=== PATIENT | male | born 1990 | race Caucasian/White ===

== ENCOUNTER 2017-03-28 22:22 | Emergency (ER) | payer BC, OTHER ==
[2017-03-28 22:53] VITALS: BP 128/84
[2017-03-28] MEDS ORDERED: HYDROmorphone 1 MG/ML Syringe IM ONE (23:00)
[2017-03-28] MEDS ORDERED: HYDROmorphone 1 MG/ML Syringe ONE (23:09)
--- NOTE | 2017-03-28 23:38 | EDM.PDOC ---
ED HPI GENERAL MEDICAL PROBLEM - General Chief Complaint: Upper Extremity Injury/Pain Stated Complaint: RIGHT ARM INJURY Time Seen by Provider: 03/28/17 23:01 Source of Information: Reports: Patient History Limitations: Reports: No Limitations - History of Present Illness INITIAL COMMENTS - FREE TEXT/NARRATIVE: This young man is here on a 4 bales tripped and somehow his right upper or got pinned between a trailer and a tree. This happened just prior to arrival. He has a lot of pain to the upper or complains of some tingling in his fingers and that type of thing. Right Arm Pain Score (Numeric/FACES): 7 - Related Data Allergies Allergy/AdvReac Type Severity Reaction Status Date / Time bacitracin Allergy Cannot Verified 03/28/17 22:43 [From Neosporin Remember ([id number])] neomycin Allergy Cannot Verified 03/28/17 22:43 [From Neosporin Remember ([id number])] polymyxin B Allergy Cannot Verified 03/28/17 22:43 [From Neosporin Remember ([id number])] Home Meds: Home Meds NK [No Known Home Meds] 03/28/17 [History] Past Medical History HEENT History: Reports: Cataract Respiratory History: Reports: Asthma - Infectious Disease History Infectious Disease History: Reports: Chicken Pox - Past Surgical History HEENT Surgical History: Reports: Adenoidectomy, Cataract Surgery, Eye Surgery, Oral Surgery, Tonsillectomy Social & Family History - Tobacco Use Years of Tobacco use: 6 Packs/Tins Daily: 0.5 - Caffeine Use Caffeine Use: Reports: Coffee - Recreational Drug Use Recreational Drug Use: No Review of Systems - Review of Systems Review Of Systems: ROS reveals no pertinent complaints other than HPI. Trauma Exam - Physical Exam Exam: See Below Exam Limited By: No Limitations General Appearance: Reports: Alert, WD/WN, Mild Distress Head: Reports: Atraumatic Respiratory Exam: Reports: Other (the chest shows no evidence of any chest trauma) Extremities: Other (There is some bruising to the right upper arm to the medial side of the upper arm and lateral side of the upper arm and over the triceps. He has tenderness over the triceps and biceps in the lower part of the deltoid muscles. Initially range of motion is very restricted. He does have good range of motion at the elbow both active and passive. Exam was repeated after about one hour and there's no change) Neurologic: Reports: No Motor/Sensory Deficits Skin: Reports: Other (C. extremities above) Course - Vital Signs Last Recorded V/S: Last Vital Signs Temp 36.9 C 03/28/17 22:45 Pulse 100 03/28/17 22:45 Resp 18 03/28/17 22:45 BP 128/84 03/28/17 22:45 Pulse Ox 97 03/28/17 22:45 - Orders/Labs/Meds Orders: Active Orders 24 hr Category Date Time Status Humerus Rt [CR] Stat Exams 03/28/17 23:00 Taken Meds: Medications Discontinued Medications Generic Name Dose Route Start Last Admin Trade Name Freq PRN Reason Stop Dose Admin Hydromorphone HCl 2 mg 03/28/17 23:00 03/28/17 23:12 Dilaudid IM 03/28/17 23:01 2 mg ONETIME ONE Administration Hydromorphone HCl Confirm 03/28/17 23:09 03/28/17 23:12 Dilaudid Administered 03/28/17 23:10 Not Given Dose 2 mg .ROUTE .ST-MED ONE - Radiology Interpretation Free Text/Narrative:: X-ray shows no evidence of fracture dislocation of the humerus - Re-Assessments/Exams Free Text/Narrative Re-Assessment/Exam: 03/28/17 23:36 X-ray is negative for fracture. Exam shows no evidence of compartment syndrome however he has a lot of tenderness to the biceps and triceps. Pain is about what I would expect. He is able to extend and flex at the elbow but range of motion is pretty limited passive range of motion is full however at the elbow. Plan will be to apply ice and then recheck him later for signs of compartment syndrome. He received Dilaudid 2 mg IM. 03/29/17 00:51 The patient was rechecked and range of motion of the elbow is better he can flex and extend the elbow and at duct the upper arm at the shoulder. There's no evidence of compartment syndrome. Departure - Departure Time of Disposition: 00:52 Disposition: Home, Self-Care 01 Condition: fair Clinical Impression: Contusion of right upper arm, Contusion right upper arm - Discharge Information Forms: ED Department Discharge Additional Instructions: Continue to elevate and apply ice for the next 24 hours or so. Wear the sling and David wrap for comfort. For pain you may take Narco 5/325, #12 tablets, one or 2 every 4 hours as needed for pain. This medication can cause sedation and impair driving or operating machinery. For any problems return to the ER or see your Dr. or healthcare provider. - My Orders Last 24 Hours: My Active Orders 03/28/17 23:00 Humerus Rt [CR] Stat - Assessment/Plan Last 24 Hours: My Active Orders 03/28/17 23:00 Humerus Rt [CR] Stat
--- NOTE | 2017-04-01 10:43 | CR ---
No evidence for fracture.
== END 2017-03-29 01:27 | disposition home or self-care (01) ==
LOC: JP.ED 22:22
DX: S40.021A Contusion of right upper arm, initial encounter (principal); Z98.49 Cataract extraction status, unspecified eye; Z98.890 Other specified postprocedural states; Z88.1 Allergy status to other antibiotic agents; W23.1XXA Caught, crushed, jammed, or pinched between stationary objects, initial encounter
CPT/HCPCS: 73060; 96372; 99284; J1170